=== PATIENT | male | born 1935 | race Caucasian/White ===

== ENCOUNTER → 2018-07-04 | Outpatient (CLI) | payer MEDICARE, BC | END | disposition home or self-care (01) | LOC: CFH 10:24 | PROVIDERS: ATTEND Family Medicine | DX: M51.36 Other intervertebral disc degeneration, lumbar region (principal); I71.4 Abdominal aortic aneurysm, without rupture; M16.11 Unilateral primary osteoarthritis, right hip | CPT/HCPCS: 72114 ==

== ENCOUNTER 2019-02-12 09:29 | Outpatient (CLI) | payer MEDICARE, BC ==
[2019-02-12] MEDS ORDERED: OMNIPAQUE 350 MG/ML, 100ML BOTTLE ONE (11:57)
== END 2019-02-12 23:59 | disposition home or self-care (01) ==
LOC: RAD 09:29
PROVIDERS: ATTEND Family Medicine
DX: J84.10 Pulmonary fibrosis, unspecified (principal); I71.4 Abdominal aortic aneurysm, without rupture; I70.0 Atherosclerosis of aorta; R19.09 Other intra-abdominal and pelvic swelling, mass and lump; M47.816 Spondylosis without myelopathy or radiculopathy, lumbar region; M16.11 Unilateral primary osteoarthritis, right hip; Z90.49 Acquired absence of other specified parts of digestive tract
CPT/HCPCS: 36415; 71260; 74177; 82565; Q9967

== ENCOUNTER → 2019-04-20 | Outpatient (CLI) | payer MEDICARE, BC | END | disposition home or self-care (01) | LOC: RAD 13:11 | PROVIDERS: ATTEND Family Medicine | DX: D64.9 Anemia, unspecified (principal); R63.0 Anorexia; R63.4 Abnormal weight loss | CPT/HCPCS: 74270 ==

== ENCOUNTER 2019-05-11 11:22 | Emergency (ER) | payer MEDICARE, BC ==
[~2019-05-11] VITALS: Ht 188 cm; Wt 80.0 kg
[2019-05-11] MEDS ORDERED: SODIUM CHLORIDE FLUSH 10ML SYR IVF ONE (12:00)
[2019-05-11 12:14] LABS: BASOPHILS # (AUTO) 0.02 x10^3/uL (0-0.1); BASOPHILS % (AUTO) 0 % (0-1); EOSINOPHILS # (AUTO) 0.09 x10^3/uL (0-0.4); EOSINOPHILS % (AUTO) 1 % (1-7); LYMPHOCYTES # (AUTO) 1.02 x10^3/uL (1-3.4); LYMPHOCYTES % (AUTO) 12 % (22-44); MD NO; MEAN CORPUSCULAR HGB CONC 32.9 g/dL (33.2-36.2); MEAN CORPUSCULAR VOLUME 100.3 fL (81-97); MEAN PLATELET VOLUME 6.9 fL (7.4-10.4); MONOCYTES # (AUTO) 0.84 x10^3/uL (0.2-0.8); MONOCYTES % (AUTO) 10 % (2-9); NEUTROPHILS # (AUTO) 6.69 x10^3/uL (1.8-6.8); NEUTROPHILS % (AUTO) 77 % (42-75); PLATELET COUNT 217 x10^3/uL (130-400); RED BLOOD COUNT 3.78 x10^6/uL (4.38-5.82); RED CELL DISTRIBUTION WIDTH 13.5 % (9.4-14.8)
--- NOTE | 2019-05-11 12:20 | NUR ---
PT AWARE OF NEED FOR UA.
[2019-05-11 12:26] LABS: INTERNATIONAL NORMALIZED RATIO 1.15 (0.93-1.1)
[2019-05-11 12:27] LABS: ALANINE AMINOTRANSFERASE 33 U/L (12-78); ALBUMIN 3.4 g/dL (3.4-5.0); ANION GAP 10 mmol/L (5-15); CALCIUM 8.4 mg/dL (8.5-10.1); CHLORIDE 107 mmol/L (98-107); CREATININE 1.66 mg/dL (0.7-1.3)
[2019-05-11 12:30] LABS: ALKALINE PHOSPHATASE 74 U/L (45-117); BILIRUBIN,TOTAL 0.9 mg/dL (0.2-1.0); TOTAL PROTEIN 6.5 g/dL (6.4-8.2)
--- NOTE | 2019-05-11 12:54 | NUR ---
TASK RN PATIENT UNABLE TO VOID-TRANSPORTATION MAINTENANCE SUPERVISOR SPOKE TO PROVIDER TO DETERMINE URGENCY OF UA (NEED FOR STRAIGHT CATH). PLAN TO OBTAIN UA WHEN PATIENT CAN VOID NATURALLY.
--- NOTE | 2019-05-11 12:56 | NUR ---
TO CT SCAN
[2019-05-11] MEDS ORDERED: OMNIPAQUE 350 MG/ML, 100ML BOTTLE ONE (13:02)
--- NOTE | 2019-05-11 13:14 | NUR ---
PT REMAINS IN CT. WILL BLADDER SCAN PT ONCE RETURNED TO ED RM 40.
--- NOTE | 2019-05-11 13:18 | NUR ---
PT BACK FROM CT. RESTING ON GURNEY. NADN. VSS. STATES UNABLE TO URINATE.
--- NOTE | 2019-05-11 13:38 | NUR ---
PT BLADDER SCANNED. HAD 51 ML ON BLADDER SCANNER. PT URINATED 50 ML.
[2019-05-11 13:45] LABS: CULTURE INDICATED? NO; MICROSCOPIC NOT IND
--- NOTE | 2019-05-11 14:26 | NUR ---
PT RESTING ON GURNEY. NADN. MARQUEZ. AWARE OF POC FOR ESOPHAGRAM RESULTS.
[2019-05-11] MEDS ORDERED: OMNIPAQUE 350 MG/ML, 150 ML BOTTLE ONE (14:28)
[2019-05-11 15:10] VITALS: BP 130/65
--- NOTE | 2019-05-11 15:10 | NUR ---
PT RESTING ON GURNEY. NADN. MARQUEZ.
--- NOTE | 2019-05-11 15:37 | NUR ---
PT CHART REVIEWED AND PLACED FOR RECHECK.
== END 2019-05-11 16:12 | disposition home or self-care (01) ==
LOC: ED 12:38
DX: I71.4 Abdominal aortic aneurysm, without rupture (principal); R11.10 Vomiting, unspecified; R63.4 Abnormal weight loss; Z87.891 Personal history of nicotine dependence; N28.9 Disorder of kidney and ureter, unspecified
CPT/HCPCS: 36415; 71045; 74177; 74220; 80053; 81003; 82140; 83605; 83690; 83880; 85025; 85610; 93005; 99284; Q9967

== ENCOUNTER 2019-07-23 12:02 | Inpatient (IN) | payer MEDICARE, BC ==
[~2019-07-23] VITALS: Ht 188 cm; Wt 77.7 kg
[2019-07-23] MEDS ORDERED: TRAMADOL (12:36)
[2019-07-23] MEDS ORDERED: ACETAMINOPHEN (12:36)
[2019-07-23] MEDS ORDERED: VENLAFAXINE (12:36)
--- NOTE | 2019-07-23 12:53 | NUR ---
pt to ed for generalized weakness and lethargy x1 month. pt was found on floor by son this am, unknown if fell or laid down. pt states he did not hit head and denies any trauma. piv established architectural job captain by remsa. 500mL ns administered architectural job captain. pt connected to monitors. all vss on ra. Dr. Austin to bs for assessment. orders received. lab draw and xr complete. us maeganl collected and sent to lab. awaiting ct.
[2019-07-23] MEDS ORDERED: SODIUM CHLORIDE FLUSH 10ML SYR IVF ONE (13:00)
[2019-07-23 13:02] LABS: MICROSCOPIC NOT IND
[2019-07-23 13:04] LABS: CULTURE INDICATED? NO
[2019-07-23 13:10] LABS: BASOPHILS # (AUTO) 0.03 x10^3/uL (0-0.1); BASOPHILS % (AUTO) 0 % (0-1); EOSINOPHILS % (AUTO) 1 % (1-7); LYMPHOCYTES # (AUTO) 1.03 x10^3/uL (1-3.4); LYMPHOCYTES % (AUTO) 15 % (22-44); MD NO; MEAN CORPUSCULAR HEMOGLOBIN 33.9 pg (27.5-34.5); MEAN CORPUSCULAR HGB CONC 33.3 g/dL (33.2-36.2); MEAN CORPUSCULAR VOLUME 101.7 fL (81-97); MEAN PLATELET VOLUME 7.2 fL (7.4-10.4); MONOCYTES % (AUTO) 13 % (2-9); NEUTROPHILS # (AUTO) 5.09 x10^3/uL (1.8-6.8); NEUTROPHILS % (AUTO) 71 % (42-75); PLATELET COUNT 197 x10^3/uL (130-400); RED BLOOD COUNT 3.26 x10^6/uL (4.38-5.82); RED CELL DISTRIBUTION WIDTH 13.8 % (9.4-14.8)
[2019-07-23 13:11] LABS: ALBUMIN 3.2 g/dL (3.4-5.0); ANION GAP 8 mmol/L (5-15); CALCIUM 8.2 mg/dL (8.5-10.1); CHLORIDE 108 mmol/L (98-107)
[2019-07-23 13:17] LABS: ALANINE AMINOTRANSFERASE 15 U/L (12-78); ALKALINE PHOSPHATASE 65 U/L (45-117); BILIRUBIN,TOTAL 1.2 mg/dL (0.2-1.0); CREATININE 1.06 mg/dL (0.7-1.3); TOTAL PROTEIN 5.8 g/dL (6.4-8.2)
--- NOTE | 2019-07-23 13:41 | NUR ---
pt resting in room with family at bs. vss. no needs expressed. pt and family updated on poc. awatiing resutls. plan jovi admit.
--- NOTE | 2019-07-23 14:28 | NUR ---
pt restignin room with eyes closed adn lights dimmed. vss. no needs expressed. admit orders received. awaiting room assignment.
[2019-07-23] MEDS ORDERED: SODIUM CHLORIDE FLUSH 10ML SYR IVF PRN (14:30)
--- NOTE | 2019-07-23 14:47 | NUR ---
PT TO MRI.
--- NOTE | 2019-07-23 14:57 | NUR ---
REPORT TO LUCY AVILA. PT TO MRI AT THIS TIME. PT WILL GO STRAIGHT TO ROOM AFTER MRI.
[2019-07-23] MEDS ORDERED: morphine SULFATE 10 MG/ML, 1ML IVPush PRN (15:00)
[2019-07-23] MEDS ORDERED: ONDANSETRON 2MG/ML, 2ML IVPush PRN (15:00)
[2019-07-23] MEDS ORDERED: hydrALAzine 20 MG/ML, 1ML IVPush PRN (15:00)
[2019-07-23] MEDS ORDERED: ACETAMINOPHEN 325 MG TABLET PO PRN (15:00)
[2019-07-23] MEDS ORDERED: ONDANSETRON ODT 4 MG PO PRN (15:00)
[2019-07-23 15:30] LABS: TROPONIN I 0.028 ng/mL (0.000-0.045)
[2019-07-23] MEDS ORDERED: OMNIPAQUE 350 MG/ML, 100ML BOTTLE ONE (15:36)
[2019-07-23 17:16] VITALS: BP 161/80
[2019-07-23] MEDS: ENOXAPARIN 40 MG/0.4 ML SQ SCH (17:57)
[2019-07-23 20:21] VITALS: BP 105/62
[2019-07-23] MEDS: MIRTAZAPINE 15 MG TABLET PO SCH (20:37)
[2019-07-24 00:29] VITALS: BP 144/69
[2019-07-24 07:09] LABS: BASOPHILS # (AUTO) 0.04 x10^3/uL (0-0.1); BASOPHILS % (AUTO) 1 % (0-1); EOSINOPHILS # (AUTO) 0.05 x10^3/uL (0-0.4); EOSINOPHILS % (AUTO) 1 % (1-7); LYMPHOCYTES # (AUTO) 1.26 x10^3/uL (1-3.4); LYMPHOCYTES % (AUTO) 18 % (22-44); MD NO; MEAN CORPUSCULAR HEMOGLOBIN 32.8 pg (27.5-34.5); MEAN CORPUSCULAR HGB CONC 32.6 g/dL (33.2-36.2); MEAN CORPUSCULAR VOLUME 100.5 fL (81-97); MEAN PLATELET VOLUME 7.5 fL (7.4-10.4); MONOCYTES # (AUTO) 0.76 x10^3/uL (0.2-0.8); MONOCYTES % (AUTO) 11 % (2-9); NEUTROPHILS # (AUTO) 4.94 x10^3/uL (1.8-6.8); NEUTROPHILS % (AUTO) 70 % (42-75); PLATELET COUNT 189 x10^3/uL (130-400); RED BLOOD COUNT 3.35 x10^6/uL (4.38-5.82); RED CELL DISTRIBUTION WIDTH 13.8 % (9.4-14.8)
[2019-07-24 07:15] LABS: % IRON SATURATION 29 % (20-55); ANION GAP 9 mmol/L (5-15); CALCIUM 7.9 mg/dL (8.5-10.1); CHLORIDE 108 mmol/L (98-107); CHOLESTEROL, TOTAL 132 mg/dL (140-239); CREATININE 0.95 mg/dL (0.7-1.3); IRON LEVEL 50 mcg/dL (65-175); TOTAL IRON BINDING CAPACITY 172 mcg/dL (250-450)
[2019-07-24 07:24] LABS: CHOL/HDL RATIO 2.8; HDL CHOL % 36 % (26-37); HDL CHOLESTEROL (DIRECT) 47 mg/dL (40-60); LDL CHOLESTEROL,CALCULATED 71 mg/dL (54-169); LDL/HDL RATIO 1.5 (0.5-3.0); TRIGLYCERIDES 69 mg/dL (50-200); VLDL CHOLESTEROL 14 mg/dL (0-25)
[2019-07-24 07:50] VITALS: BP 150/73
[2019-07-24 09:18] VITALS: BP 158/68
[2019-07-24 11:45] VITALS: BP 156/80
[2019-07-24 12:44] VITALS: BP 97/59
[2019-07-24] MEDS: SODIUM CHLORIDE 0.9% 1,000 ML IV SCH (14:07)
[2019-07-24] MEDS: ENOXAPARIN 40 MG/0.4 ML SQ SCH (14:07)
[2019-07-24] MEDS ORDERED: MAGNESIUM SULFATE PMX 2GM/50ML 50 ML IV ONE (15:00)
[2019-07-24 19:02] VITALS: BP 111/62
[2019-07-24] MEDS: MIRTAZAPINE 15 MG TABLET PO SCH (20:18)
[2019-07-24] MEDS ORDERED: OMNIPAQUE 350 MG/ML, 100ML BOTTLE ONE (20:24)
[2019-07-25 00:23] VITALS: BP 154/80
[2019-07-25 05:42] LABS: BASOPHILS # (AUTO) 0.02 x10^3/uL (0-0.1); BASOPHILS % (AUTO) 0 % (0-1); CHLORIDE 105 mmol/L (98-107); EOSINOPHILS # (AUTO) 0.16 x10^3/uL (0-0.4); EOSINOPHILS % (AUTO) 2 % (1-7); LYMPHOCYTES % (AUTO) 13 % (22-44); MD NO; MEAN CORPUSCULAR HEMOGLOBIN 33.7 pg (27.5-34.5); MEAN CORPUSCULAR HGB CONC 33.2 g/dL (33.2-36.2); MEAN CORPUSCULAR VOLUME 101.5 fL (81-97); MEAN PLATELET VOLUME 7.2 fL (7.4-10.4); MONOCYTES # (AUTO) 0.82 x10^3/uL (0.2-0.8); MONOCYTES % (AUTO) 9 % (2-9); NEUTROPHILS % (AUTO) 76 % (42-75); PLATELET COUNT 191 x10^3/uL (130-400); RED BLOOD COUNT 3.39 x10^6/uL (4.38-5.82); RED CELL DISTRIBUTION WIDTH 13.4 % (9.4-14.8)
[2019-07-25 05:52] LABS: ALANINE AMINOTRANSFERASE 29 U/L (12-78); ALBUMIN 2.8 g/dL (3.4-5.0); ALKALINE PHOSPHATASE 129 U/L (45-117); ANION GAP 8 mmol/L (5-15); BILIRUBIN,TOTAL 1.8 mg/dL (0.2-1.0); CALCIUM 8.1 mg/dL (8.5-10.1); CREATININE 1.06 mg/dL (0.7-1.3); TOTAL PROTEIN 5.5 g/dL (6.4-8.2)
[2019-07-25] MEDS: SODIUM CHLORIDE 0.9% 1,000 ML IV SCH ×2 (08:27→21:30)
[2019-07-25 08:52] VITALS: BP 119/69
[2019-07-25] MEDS ORDERED: CYANOCOBALAMIN 1,000 MCG/ML, 1ML IM ONE (13:00)
[2019-07-25 14:51] VITALS: BP 129/67
[2019-07-25] MEDS: ENOXAPARIN 40 MG/0.4 ML SQ SCH (15:16)
[2019-07-25 19:19] VITALS: BP 149/77
[2019-07-25] MEDS: MIRTAZAPINE 15 MG TABLET PO SCH (20:09)
[2019-07-25] MEDS ORDERED: LOVA20TA2 PO (20:46)
[2019-07-25] MEDS ORDERED: DOXA2TAB9 PO (20:48)
[2019-07-25] MEDS ORDERED: FINA5TAB4 PO (20:51)
[2019-07-25] MEDS ORDERED: CLOP75TA52 PO (21:10)
[2019-07-25] MEDS ORDERED: RAME8TAB19 PO (21:12)
[2019-07-25 22:38] VITALS: BP 153/78
[2019-07-25] MEDS: DOXAZOSIN 2MG TABLET PO SCH (22:42)
[2019-07-25] MEDS: LOVASTATIN 20 MG TABLET PO SCH (22:42)
[2019-07-26 00:48] VITALS: BP 104/62
[2019-07-26 05:38] LABS: BASOPHILS # (AUTO) 0.02 x10^3/uL (0-0.1); BASOPHILS % (AUTO) 0 % (0-1); EOSINOPHILS # (AUTO) 0.06 x10^3/uL (0-0.4); EOSINOPHILS % (AUTO) 1 % (1-7); LYMPHOCYTES # (AUTO) 1.08 x10^3/uL (1-3.4); LYMPHOCYTES % (AUTO) 19 % (22-44); MD NO; MEAN CORPUSCULAR HEMOGLOBIN 33.4 pg (27.5-34.5); MEAN CORPUSCULAR VOLUME 101.4 fL (81-97); MEAN PLATELET VOLUME 7.2 fL (7.4-10.4); MONOCYTES % (AUTO) 12 % (2-9); NEUTROPHILS # (AUTO) 3.89 x10^3/uL (1.8-6.8); NEUTROPHILS % (AUTO) 68 % (42-75); PLATELET COUNT 160 x10^3/uL (130-400); RED BLOOD COUNT 3.12 x10^6/uL (4.38-5.82); RED CELL DISTRIBUTION WIDTH 12.9 % (9.4-14.8)
[2019-07-26 05:51] LABS: ALBUMIN 2.5 g/dL (3.4-5.0); ANION GAP 7 mmol/L (5-15); CALCIUM 7.7 mg/dL (8.5-10.1); CHLORIDE 107 mmol/L (98-107)
[2019-07-26 05:55] LABS: ALANINE AMINOTRANSFERASE 19 U/L (12-78); ALKALINE PHOSPHATASE 95 U/L (45-117); BILIRUBIN,TOTAL 1.6 mg/dL (0.2-1.0); CREATININE 1.01 mg/dL (0.7-1.3); TOTAL PROTEIN 5.1 g/dL (6.4-8.2)
[2019-07-26 07:20] VITALS: BP 124/72
[2019-07-26] MEDS: CLOPIDOGREL 75 MG TABLET PO SCH (08:40)
[2019-07-26] MEDS: FINASTERIDE 5 MG TABLET PO SCH (08:40)
[2019-07-26] MEDS: SODIUM CHLORIDE 0.9% 1,000 ML IV SCH (08:40)
[2019-07-26] MEDS: DRONABINOL 2.5 MG CAPSULE PO SCH ×2 (12:58→20:45)
[2019-07-26 14:43] VITALS: BP 116/68
[2019-07-26] MEDS: ENOXAPARIN 40 MG/0.4 ML SQ SCH (15:55)
[2019-07-26] MEDS ORDERED: FLU VACC QS2019-20 36MOS UP/PF 0.5 ML IM-VACC ONE (18:30)
[2019-07-26 19:21] VITALS: BP 118/73
[2019-07-26] MEDS: LOVASTATIN 20 MG TABLET PO SCH (20:45)
[2019-07-26] MEDS: DOXAZOSIN 2MG TABLET PO SCH (20:45)
[2019-07-26] MEDS: MIRTAZAPINE 15 MG TABLET PO SCH (20:45)
[2019-07-27 01:42] VITALS: BP 147/74
[2019-07-27 05:25] LABS: BASOPHILS # (AUTO) 0.02 x10^3/uL (0-0.1); BASOPHILS % (AUTO) 0 % (0-1); EOSINOPHILS # (AUTO) 0.12 x10^3/uL (0-0.4); EOSINOPHILS % (AUTO) 2 % (1-7); LYMPHOCYTES # (AUTO) 0.96 x10^3/uL (1-3.4); LYMPHOCYTES % (AUTO) 19 % (22-44); MD NO; MEAN CORPUSCULAR HEMOGLOBIN 33.4 pg (27.5-34.5); MEAN CORPUSCULAR HGB CONC 33.4 g/dL (33.2-36.2); MEAN PLATELET VOLUME 7.1 fL (7.4-10.4); MONOCYTES # (AUTO) 0.65 x10^3/uL (0.2-0.8); MONOCYTES % (AUTO) 13 % (2-9); NEUTROPHILS # (AUTO) 3.39 x10^3/uL (1.8-6.8); NEUTROPHILS % (AUTO) 66 % (42-75); PLATELET COUNT 148 x10^3/uL (130-400); RED BLOOD COUNT 3.19 x10^6/uL (4.38-5.82); RED CELL DISTRIBUTION WIDTH 13.2 % (9.4-14.8)
[2019-07-27 05:38] LABS: ALANINE AMINOTRANSFERASE 17 U/L (12-78); ALBUMIN 2.5 g/dL (3.4-5.0); ANION GAP 6 mmol/L (5-15); CALCIUM 7.9 mg/dL (8.5-10.1); CHLORIDE 109 mmol/L (98-107)
[2019-07-27 05:40] LABS: ALKALINE PHOSPHATASE 83 U/L (45-117); BILIRUBIN,TOTAL 1.3 mg/dL (0.2-1.0); CREATININE 0.97 mg/dL (0.7-1.3); TOTAL PROTEIN 5.1 g/dL (6.4-8.2)
[2019-07-27 06:55] VITALS: BP 128/67
[2019-07-27] MEDS: FINASTERIDE 5 MG TABLET PO SCH (08:38)
[2019-07-27] MEDS: CLOPIDOGREL 75 MG TABLET PO SCH (08:39)
[2019-07-27] MEDS: DRONABINOL 2.5 MG CAPSULE PO SCH (08:39)
[2019-07-27] MEDS ORDERED: POLYETHYLENE GLYCOL 17 GM PACKET PO SCH (12:00)
[2019-07-27] MEDS ORDERED: DOCUSATE 100 MG CAPSULE PO SCH (12:00)
[2019-07-27] MEDS ORDERED: BISACODYL 10 MG SUPP PR PRN (12:00)
[2019-07-27 13:21] VITALS: BP_SYST 114; BP_SYST 88; BP_DIAS 40; BP_DIAS 64
[2019-07-27] MEDS ORDERED: DRON2.5C2 PO (13:58)
[2019-07-27] MEDS ORDERED: DOCU-131 PO (13:58)
[2019-07-27] MEDS ORDERED: POLY17PO5 PO (13:58)
[2019-07-27] MEDS ORDERED: ACET325T26 PO (13:58)
[2019-07-27] MEDS ORDERED: ONDA4TAB13 PO (13:58)
[2019-07-27] MEDS ORDERED: MIRT-34 PO (13:58)
[2019-07-27] MEDS: ENOXAPARIN 40 MG/0.4 ML SQ SCH (15:28)
== END 2019-07-27 17:30 | DRG 640 ==
LOC: ED 12:54 → EDIP 14:20 → 3N 15:15
PROVIDERS: ADMIT Internal Medicine; ATTEND Internal Medicine
DX: R62.7 Adult failure to thrive (principal); R53.2 Functional quadriplegia; F32.2 Major depressive disorder, single episode, severe without psychotic features; E44.1 Mild protein-calorie malnutrition; F03.90 Unspecified dementia, unspecified severity, without behavioral disturbance, psychotic disturbance, mood disturbance, and anxiety; L89.150 Pressure ulcer of sacral region, unstageable; I48.91 Unspecified atrial fibrillation; K76.1 Chronic passive congestion of liver; I50.9 Heart failure, unspecified; M16.11 Unilateral primary osteoarthritis, right hip; Z68.22 Body mass index [BMI] 22.0-22.9, adult; D53.9 Nutritional anemia, unspecified; E83.42 Hypomagnesemia; I35.8 Other nonrheumatic aortic valve disorders; I71.4 Abdominal aortic aneurysm, without rupture; J44.9 Chronic obstructive pulmonary disease, unspecified; R29.6 Repeated falls; Z66 Do not resuscitate; Z90.49 Acquired absence of other specified parts of digestive tract; Z82.3 Family history of stroke; W06.XXXA Fall from bed, initial encounter; Y93.89 Activity, other specified; Y92.89 Other specified places as the place of occurrence of the external cause; Y99.8 Other external cause status
CPT/HCPCS: 36415; 70450; 70551; 71045; 71275; 74177; 80048; 80053; 80061; 80074; 81003; 82140; 82607; 82728; 83540; 83550; 83735; 83880; 84134; 84443; 84484; 85025; 85379; 86592; 90686; 93005; 93306; 93970; 99285; G0378; J1650; Q0162; Q0167; Q9967; 92523-GN; G0515-GN; J3420; J3475; J7030

== ENCOUNTER 2020-11-17 12:55 | Emergency (ER) | payer MEDICARE, BC ==
[~2020-11-17] VITALS: Ht 188 cm; Wt 90.7 kg
[~2020-11-17 12:55] MED LIST: ACET325T26 PO; ACETAMINOPHEN; CLOP75TA52 PO; DOCU-131 PO; DOXA2TAB9 PO; DRON2.5C2 PO; FINA5TAB4 PO; LOVA20TA2 PO; MIRT-34 PO; ONDA4TAB13 PO; POLY17PO5 PO; RAME8TAB19 PO; TRAMADOL; VENLAFAXINE
[2020-11-17] MEDS ORDERED: TRAM50TA2 PO (13:35)
[2020-11-17] MEDS ORDERED: CBD PO (13:35)
[2020-11-17] MEDS ORDERED: METOPROLOL PO (13:35)
[2020-11-17 13:37] LABS: BASOPHILS % (AUTO) 1 % (0-1); EOSINOPHILS % (AUTO) 1 % (1-7); LYMPHOCYTES % (AUTO) 22 % (22-44); MEAN CORPUSCULAR HEMOGLOBIN 30.8 pg (27.5-34.5); MEAN CORPUSCULAR HGB CONC 33.4 g/dL (33.2-36.2); MEAN PLATELET VOLUME 7.4 fL (7.4-10.4); MONOCYTES % (AUTO) 10 % (2-9); NEUTROPHILS % (AUTO) 66 % (42-75); PLATELET COUNT 144 x10^3/uL (130-400); RED BLOOD COUNT 3.81 x10^6/uL (4.38-5.82); RED CELL DISTRIBUTION WIDTH 14.4 % (9.4-14.8)
--- NOTE | 2020-11-17 13:39 | NUR ---
TASK RN NOTE: PT SITTING UP IN BED, RESPIRATIONS EVEN AND UNLABORED ON RA. SON AT BEDSIDE. PT HAD FALL SOMETIME TUESDAY EVENING, UNCERTAIN ON LOC. DENIES BLOOD THINNER USE. BRUISING EVIDENT TO RT PERIORBITAL AREA AND BILATERAL HANDS. MED REC COMPLETED TO BEST OF PT/SON'S ABILITY. PT DENIES NEED FOR BLANKET AT THIS TIME. SIDE RAILS UP, CALL LIGHT IN REACH. CRISTOFER NOTIFIED OF PT'S UPDATE.
[2020-11-17 13:46] LABS: ALBUMIN 3.4 g/dL (3.4-5.0); ANION GAP 6 mmol/L (5-15); CHLORIDE 109 mmol/L (98-107); CREATININE 1.33 mg/dL (0.7-1.3)
--- NOTE | 2020-11-17 13:56 | NUR ---
REPORT FROM FLAKITO RN PATIENT TO CT SCAN AT [id number]
[2020-11-17 13:59] LABS: MD NO
--- NOTE | 2020-11-17 14:41 | NUR ---
neuro exam unchanged unable to void-erp aware erp to bedside- to d/c shortly
[2020-11-17 15:00] VITALS: BP 139/72
== END 2020-11-17 15:01 | disposition home or self-care (01) ==
LOC: ED 14:27
DX: S06.0X0A Concussion without loss of consciousness, initial encounter (principal); I48.91 Unspecified atrial fibrillation; I45.10 Unspecified right bundle-branch block; Z87.891 Personal history of nicotine dependence; I10 Essential (primary) hypertension; M19.90 Unspecified osteoarthritis, unspecified site; W18.30XA Fall on same level, unspecified, initial encounter; Y93.89 Activity, other specified; Y92.89 Other specified places as the place of occurrence of the external cause; Y99.8 Other external cause status
CPT/HCPCS: 36415; 70450; 80048; 82040; 85025; 93005; 99285